=== PATIENT | male | born 1970 | race Caucasian/White ===

== ENCOUNTER 2022-05-15 09:22 | Emergency (ER) | payer MEDICAID, SELFPAY ==
[2022-05-15 09:28] VITALS: BP 153/91; PULSE 106; RESP 14; TEMP 36.4; O2SAT 100; BMI 36.0
[2022-05-15 09:48] LABS: Appearance Urine Clear (Clear); Bilirubin Urine Negative (Negative); Blood Urine Negative (Negative); Color Urine Yellow (Yellow); Glucose Urine Negative (Negative); Ketones Urine Negative (Negative); Leukocyte Esterase Urine Negative (Negative); Nitrite Urine Negative (Negative); Protein Urine Negative (Negative); Urobilinogen Urine 0.2 (0.2-1.0); pH Urine 5.5 (5.0-8.5)
--- NOTE | 2022-05-15 10:13 | ED.GENADULT ---
HPI - General Adult General Time Seen by Provider: 10:13 Date Seen: 05/15/22 Chief complaint: Back Injury/Pain Stated complaint: Lower back pain Time Seen by Provider: 05/15/22 09:24 Source: patient Mode of arrival: ambulatory Limitations: physical limitation History of Present Illness HPI narrative: Patient is a pleasant 51 year white male has had history kidney stones, history of mild degenerative disc disease in his back. Patient reports that he was shoveling a few days ago and had some sharp pain in his right low back, no bowel or bladder symptoms, fevers, chills, perineal numbness, lower extremity symptoms. The patient reports that he has had pain with movement and twisting of his right low back. He is generally quite healthy, has allergies to sulfa tetracycline, lives in [place]. He has intermittent low back pain but nothing to this degree and it seemed to happen when he was shoveling. He also reports that it was similar to when he had a kidney stone, but his urinalysis today is negative Related Data Previous Rx's Medication Instructions Recorded ketorolac 10 mg tablet 10 mg PO Q6H PRN pain 5 days #20 05/15/22 tabs prednisone 20 mg tablet 20 mg PO BID 5 days #10 tabs 05/15/22 Allergies Allergy/AdvReac Type Severity Reaction Status Date / Time Sulfa (Sulfonamide Allergy Unknown Rash Verified 05/15/22 09:35 Antibiotics) tetracycline Allergy Unknown Rash Verified 05/15/22 09:35 Review of Systems Status of ROS: Reports: 6 or more systems reviewed and unremarkable except as noted in History and below PFSH PFSH Social History Smoking Status: Current every day smoker What tobacco products do you use: cigarettes How often do you have a drink containing alcohol: never AUDIT-C Alcohol total score: 0 Non-prescribed substance use: denies use Exam Narrative: Exam Narrative: Objective: In general patient is difficult to get out of a chair but once he is up moving he ambulates normally has normal strength sensation in his lower extremities he has stable vital signs other than slightly hypertensive No palpable low back discomfort, limited range of motion noted in the lumbar spine, no redness erythema in that area As mention no bowel or bladder changes Const: Vital Signs, click to edit/add: Vital Signs - 24 hr 05/15/22 09:28 05/15/22 10:43 Temperature 97.5 F L 97.5 F L Pulse Rate [Pulse Oximeter] 106 H 106 H Respiratory Rate 14 14 Blood Pressure [Ri ght Upper Arm] 153/91 H 153/91 H Pulse Oximetry 100 Oxygen Delivery Me thod Room Air Course Vital Signs Vital signs: Initial Vital Signs Temperature 97.5 F L 05/15/22 09:28 Temperature Source Temporal Artery Scan 05/15/22 09:28 Pulse Rate 106 H 05/15/22 09:28 Pulse Rhythm 05/15/22 09:28 Respiratory Rate 14 05/15/22 09:28 Blood Pressure 153/91 H 05/15/22 09:28 Blood Pressure Mean 111 05/15/22 09:28 Blood Pressure Position Sitting 05/15/22 09:28 Pulse Oximetry 100 05/15/22 09:28 Oxygen Delivery Method 05/15/22 09:28 Vital Signs Temperature 97.5 F L 05/15/22 09:28 Pulse Rate 106 H 05/15/22 09:28 Respiratory Rate 14 05/15/22 09:28 Blood Pressure 153/91 H 05/15/22 09:28 Pulse Oximetry 100 05/15/22 09:28 Oxygen Delivery Method 05/15/22 09:28 Temperature 97.5 F L 05/15/22 10:43 Pulse Rate 106 H 05/15/22 10:43 Respiratory Rate 14 05/15/22 10:43 Blood Pressure 153/91 H 05/15/22 10:43 Pulse Oximetry 100 05/15/22 09:28 Oxygen Delivery Method 05/15/22 09:28 Medical Decision Making MDM Narrative Medical decision making narrative: Patient was shoveling and developed right posterior superior iliac spine area back pain, likely musculoskeletal in nature. At this point I do not think x-rays with her imaging would be helpful. Will give him an injection of Toradol 60 mg IM, prednisone 50 mg orally. Will have him take Toradol and prednisone at home as prescribed. Follow-up with primary care in the next 2-3 days, icing, position of comfort, gentle range of motion. May need further imaging and other modalities and therapy if not improving. Lab Data Labs: Lab Results 05/15/22 Range/Units 09:41 Urine Color Yellow (Yellow) Urine Appearance Clear (Clear) Urine pH 5.5 (5.0-8.5) Ur Specific [place] 1.020 (1.000-1.030) Urine Protein Negative (Negative) Urine Glucose (UA) Negative (Negative) Urine Ketones Negative (Negative) Urine Blood Negative (Negative) Urine Nitrite Negative (Negative) Urine Bilirubin Negative (Negative) Urine Urobilinogen 0.2 (0.2-1.0) Ur Leukocyte Esterase Negative (Negative) Discharge Plan Discharge Clinical Impression: Strain of lumbar region Patient Disposition: Home, Self-Care Condition: Stable Additional Instructions: Position of comfort, light activity, Toradol and prednisone as prescribed. Follow up with regular doctor next 2-3 days further assessment is needed. Light activity Activity Level: Light activity Discharge Diet: Regular Prescriptions: New ketorolac 10 mg tablet 10 mg PO Q6H PRN (Reason: pain) 5 Days Qty: 20 0RF prednisone 20 mg tablet 20 mg PO BID 5 Days Qty: 10 0RF Stand Alone Forms: [facility] Info Instructions
[2022-05-15] MEDS: KETOROLAC 30 MG/ML inj 60 MG IM (10:35)
[2022-05-15] MEDS: predniSONE 10 MG TABLET 50 MG PO (10:35)
--- NOTE | 2022-05-15 10:40 | ED.NURSE ---
Reports improvement in pain after meds.
[2022-05-15 10:43] VITALS: BP 153/91; PULSE 106; RESP 14; TEMP 36.4
== END 2022-05-15 10:44 | disposition home or self-care (01) ==
PROVIDERS: Emergency Provider Family Medicine
DX: S39.012A Strain of muscle, fascia and tendon of lower back, initial encounter (principal); Y93.29 Activity, other involving ice and snow
CPT/HCPCS: 81003; 96372; 99283; J1885; J7512